=== PATIENT | female | born 1975 | race Two or more races ===

== ENCOUNTER → 2025-01-31 | Outpatient (CLI) | payer MEDICAID, SELFPAY ==
--- NOTE | 2025-01-31 09:45 | XR_ITS ---
Examination: Breast ultrasound, unilateral, left complete Date and time of exam: 10 January 2027, 2024, 1001 hours INDICATIONS: Palpable lump 3 months, history of breast abscess Technique: Real-time wild scale ultrasonographic imaging performed leftbreast including all 4 quadrants as well as nipple retroareolar and axillary region. Findings: No cystic or solid mass IMPRESSION: BI-RADS Category 1: Negative study
--- NOTE | 2025-01-31 10:15 | XR_ITS ---
Examination: Diagnostic digital mammography, bilateral Computer aided detection 3-D breast Tomosynthesis, bilateral Date and time of exam: January 31, 2025, 1013 hours INDICATIONS: Patient states palpable lump lower left breast 3 months, history of breast abscess Technique: Nonmagnified MLO, CC views of the breasts to been obtained, reconstructed from 3-D Tomosynthesis images. R2 computer aided detection program utilized for evaluation of suspicious masses and/or abnormal calcifications. 3-D Tomosynthesis images obtained. Findings: Scattered areas of fibroglandular density. Suspicious for architectural distortion lower inner left breast Impression: BI-RADS Category 0: Incomplete: Need additional imaging evaluation Recommend follow-up spot tomographic views of the area suspicious for architectural distortion lower inner left breast.
== END | disposition home or self-care (01) ==
LOC: CDIM 09:37
PROVIDERS: PCP Registered Nurse
DX: R92.8 Other abnormal and inconclusive findings on diagnostic imaging of breast (principal)
CPT/HCPCS: 76641; 77062; 77066; G0279